=== PATIENT | female | born 1990 | race Caucasian/White ===

== ENCOUNTER 2017-11-14 11:48 | Emergency (ER) | payer OTHER ==
[~2017-11-14] VITALS: Ht 162.6 cm; Wt 73.7 kg
[~2017-11-14 11:48] MED LIST: Motrin PO; Percocet 5/325,Endoc PO; TYLENOL REGULA325 MG PO
[2017-11-14 12:42] VITALS: BP 116/78
== END 2017-11-14 13:30 | disposition left against medical advice (07) ==
LOC: EME 11:48
DX: M79.1 Myalgia (principal); R68.83 Chills (without fever); Z53.21 Procedure and treatment not carried out due to patient leaving prior to being seen by health care provider